=== PATIENT | male | born 1945 | race Caucasian/White ===

== ENCOUNTER 2019-08-24 06:18 | Inpatient (IN) | payer MEDICARE ==
[2019-08-18 13:47] VITALS: BP 168/94
[~2019-08-24] VITALS: Ht 167.6 cm; Wt 104.3 kg
[~2019-08-24 06:18] MED LIST: AMIO200T42 PO; APIX5TAB PO; ASPI81TA45 PO; ATOR40TA PO; B CO1TAB14 PO; CHOL40002 PO; DIAZ5TAB PO; EZET10TA70 PO; GABA300C PO; LEVO88TA2 PO; OXYC-302 PO; RAMI2.5C28 PO; SITA25TA PO
[2019-08-24] MEDS ORDERED: EPINEPHRINE 1 MG/ML, 1ML ONE (07:09)
[2019-08-24] MEDS ORDERED: THROMBIN (RECOMBINANT) 5,000 UNIT VIAL TP ONE (07:09)
[2019-08-24] MEDS ORDERED: BACITRACIN 50,000 UNIT ONE (07:09)
[2019-08-24] MEDS ORDERED: BUPIVACAINE/PF 0.5% ONE (07:09)
[2019-08-24] MEDS ORDERED: LACTATED RINGERS 1,000 ML IV SCH (07:32)
[2019-08-24] MEDS ORDERED: MIDAZOLAM 1 MG/ML, 2ML ONE (08:49)
[2019-08-24] MEDS ORDERED: FENTANYL PF 250 MCG/5ML ONE (08:49)
[2019-08-24] MEDS ORDERED: ROCURONIUM 10MG/ML,5ML ONE (08:50)
[2019-08-24] MEDS ORDERED: CEFAZOLIN 1,000 MG ONE (08:50)
[2019-08-24] MEDS ORDERED: ONDANSETRON 2MG/ML, 2ML ONE (08:50)
[2019-08-24] MEDS ORDERED: PROPOFOL 10 MG/ML, 20ML ONE (08:50)
[2019-08-24] MEDS ORDERED: WATER-INJECTION,STERILE 10 ML IV ONE (08:50)
[2019-08-24] MEDS ORDERED: DEXAMETHASONE 4 MG/ML, 1ML ONE (08:50)
[2019-08-24] MEDS ORDERED: LIDOCAINE-MPF 2% ,5ML ONE (08:50)
[2019-08-24] MEDS ORDERED: PHENYLEPHRINE 10 MG/ML ONE (09:48)
[2019-08-24] MEDS ORDERED: SUGAMMADEX 200 MG/2 ML IVPush ONE (09:48)
[2019-08-24] MEDS ORDERED: PROMETHAZINE 25 MG/ML, 1ML IV PRN (10:30)
[2019-08-24] MEDS ORDERED: ALBUTEROL/IPRATROPIUM 2.5MG/0.5MG, 3 ML NPPB PRN (10:30)
[2019-08-24] MEDS ORDERED: MEPERIDINE/PF 25MG/ML,1ML IVPush PRN (10:30)
[2019-08-24] MEDS ORDERED: METHOCARBAMOL 1,000 MG in DEXTROSE 5% 100 ML IV PRN (10:30)
[2019-08-24] MEDS ORDERED: hydrALAzine 20 MG/ML, 1ML IV PRN (10:30)
[2019-08-24] MEDS ORDERED: ACETAMINOPHEN 325 MG TABLET PO PRN ×2 (10:30→14:30)
[2019-08-24] MEDS ORDERED: FENTANYL PF 100 MCG/2ML IV PRN (10:30)
[2019-08-24] MEDS ORDERED: HYDROmorphone 2 MG/ML, 1ML IVPush PRN (10:30)
[2019-08-24] MEDS ORDERED: HALOPERIDOL 5 MG/ML IV PRN (10:30)
[2019-08-24] MEDS ORDERED: OXYcodone 5 MG/5 ML ORAL.SOL UDC PO PRN (10:30)
[2019-08-24] MEDS: INSULIN REGULAR 100 UNITS/ML, 3ML VIAL SQ-INSULIN SCH ×3 (11:00→20:39)
[2019-08-24] MEDS ORDERED: ONDANSETRON 2MG/ML, 2ML IV PRN (14:30)
[2019-08-24] MEDS ORDERED: CYCLOBENZAPRINE 10 MG TABLET PO PRN (14:30)
[2019-08-24] MEDS ORDERED: BISACODYL 10 MG SUPP PR PRN (14:30)
[2019-08-24] MEDS ORDERED: DIAZEPAM 5 MG TABLET PO PRN (14:30)
[2019-08-24] MEDS ORDERED: MAGNESIUM HYDROXIDE 8%, 30ML UDC PO PRN (14:30)
[2019-08-24] MEDS ORDERED: GABAPENTIN MC SCH (14:30)
[2019-08-24] MEDS ORDERED: ACETAMINOPHEN 650 MG SUPP PR PRN (14:30)
[2019-08-24] MEDS ORDERED: HYDROmorphone 2 MG/ML, 1ML IM PRN (14:30)
[2019-08-24] MEDS ORDERED: DIAZEPAM 5 MG/ML, 2ML IV PRN (14:30)
[2019-08-24] MEDS ORDERED: METHOCARBAMOL 750 MG TABLET PO PRN (14:30)
[2019-08-24] MEDS ORDERED: PROMETHAZINE 25 MG/ML, 1ML IM PRN (14:30)
[2019-08-24] MEDS ORDERED: LABETALOL 5MG/ML, 20ML IV PRN (14:30)
[2019-08-24] MEDS: NS + 20MEQ KCL 1,000 ML IV SCH (16:57)
[2019-08-24] MEDS: CEFAZOLIN PMX 1GM/50ML 50 ML IVPB SCH (16:57)
[2019-08-24 19:20] VITALS: BP 137/73
[2019-08-24] MEDS: ATORVASTATIN 40 MG TABLET PO SCH (20:39)
[2019-08-24] MEDS ORDERED: GABAPENTIN 300 MG CAPSULE PO PRN (21:30)
[2019-08-25 00:39] VITALS: BP 110/56
[2019-08-25] MEDS: CEFAZOLIN PMX 1GM/50ML 50 ML IVPB SCH (01:22)
[2019-08-25] MEDS: NS + 20MEQ KCL 1,000 ML IV SCH ×2 (05:20→17:55)
[2019-08-25 05:22] LABS: BASOPHILS # (AUTO) 0.11 x10^3/uL (0-0.1); BASOPHILS % (AUTO) 1 % (0-1); EOSINOPHILS % (AUTO) 1 % (1-7); LYMPHOCYTES % (AUTO) 8 % (22-44); MD NO; MEAN CORPUSCULAR HEMOGLOBIN 27.9 pg (27.5-34.5); MEAN CORPUSCULAR HGB CONC 31.8 g/dL (33.2-36.2); MEAN CORPUSCULAR VOLUME 87.8 fL (81-97); MEAN PLATELET VOLUME 8.2 fL (7.4-10.4); MONOCYTES # (AUTO) 0.71 x10^3/uL (0.2-0.8); MONOCYTES % (AUTO) 6 % (2-9); NEUTROPHILS # (AUTO) 10.12 x10^3/uL (1.8-6.8); NEUTROPHILS % (AUTO) 84 % (42-75); PLATELET COUNT 205 x10^3/uL (130-400); RED CELL DISTRIBUTION WIDTH 16.5 % (9.4-14.8)
[2019-08-25 05:33] LABS: ANION GAP 6 mmol/L (5-15); CALCIUM 8.3 mg/dL (8.5-10.1); CHLORIDE 106 mmol/L (98-107)
[2019-08-25 05:34] LABS: CREATININE 2.65 mg/dL (0.7-1.3)
[2019-08-25] MEDS: LEVOTHYROXINE 88 MCG TABLET PO SCH (06:35)
[2019-08-25 07:01] VITALS: BP 116/63
[2019-08-25] MEDS: INSULIN REGULAR 100 UNITS/ML, 3ML VIAL SQ-INSULIN SCH ×4 (08:55→21:05)
[2019-08-25] MEDS: SENNA/DOCUSATE TABLET PO SCH (08:56)
[2019-08-25] MEDS: EZETIMIBE 10 MG TABLET PO SCH (08:56)
[2019-08-25] MEDS: RAMIPRIL 2.5 MG CAPSULE PO SCH (08:56)
[2019-08-25] MEDS: LINAGLIPTIN 5 MG TAB PO SCH (08:56)
[2019-08-25] MEDS: AMIODARONE 200 MG TABLET PO SCH (08:56)
[2019-08-25] MEDS: OXYcodone/APAP 5/325MG TABLET PO PRN ×3 (12:29→20:47)
[2019-08-25 13:20] VITALS: BP 103/53
[2019-08-25 20:41] VITALS: BP 123/63
[2019-08-25] MEDS: ATORVASTATIN 40 MG TABLET PO SCH (20:47)
[2019-08-26 01:44] VITALS: BP 114/59
[2019-08-26] MEDS: LEVOTHYROXINE 88 MCG TABLET PO SCH (06:05)
[2019-08-26] MEDS: OXYcodone/APAP 5/325MG TABLET PO PRN (06:08)
[2019-08-26 07:20] VITALS: BP 147/73
[2019-08-26] MEDS: INSULIN REGULAR 100 UNITS/ML, 3ML VIAL SQ-INSULIN SCH (07:55)
[2019-08-26] MEDS: EZETIMIBE 10 MG TABLET PO SCH (07:55)
[2019-08-26] MEDS: SENNA/DOCUSATE TABLET PO SCH (07:56)
[2019-08-26] MEDS: AMIODARONE 200 MG TABLET PO SCH (07:56)
[2019-08-26] MEDS: LINAGLIPTIN 5 MG TAB PO SCH (07:56)
[2019-08-26] MEDS: RAMIPRIL 2.5 MG CAPSULE PO SCH (07:56)
[2019-08-26] MEDS: NS + 20MEQ KCL 1,000 ML IV SCH (07:56)
== END 2019-08-26 10:15 | disposition home health service (06) | DRG 520 ==
LOC: OUT 06:18 → 4NE 13:56 → OUT 13:59 → DCLOUNGE 08-26 10:07
PROVIDERS: ADMIT Neurological Surgery; ATTEND Neurological Surgery
PROC: 01NB0ZZ Release Lumbar Nerve, Open Approach (ICD-10-PCS; 2019-08-24)
PROC: 01NR0ZZ Release Sacral Nerve, Open Approach (ICD-10-PCS; 2019-08-24)
PROC: 00NY0ZZ Release Lumbar Spinal Cord, Open Approach (ICD-10-PCS; principal; 2019-08-24 09:30)
DX: M48.07 Spinal stenosis, lumbosacral region (principal); M54.17 Radiculopathy, lumbosacral region; M47.896 Other spondylosis, lumbar region; J44.9 Chronic obstructive pulmonary disease, unspecified; N18.3 Chronic kidney disease, stage 3 (moderate); E11.22 Type 2 diabetes mellitus with diabetic chronic kidney disease; E78.00 Pure hypercholesterolemia, unspecified; E11.40 Type 2 diabetes mellitus with diabetic neuropathy, unspecified; E07.9 Disorder of thyroid, unspecified; Z88.8 Allergy status to other drugs, medicaments and biological substances; Z88.5 Allergy status to narcotic agent; Z79.899 Other long term (current) drug therapy; Z87.891 Personal history of nicotine dependence; I25.2 Old myocardial infarction; Z86.73 Personal history of transient ischemic attack (TIA), and cerebral infarction without residual deficits
CPT/HCPCS: 36415; 72100; 72141; 80048; 82962; 85025; G0378; J0171; J0690; J1100; J1815; J2250; J2270; J2405; J2704; J3010; J3480; J2370

== ENCOUNTER 2020-03-12 07:42 | Outpatient (CLI) | payer MEDICARE ==
[2020-03-12 09:17] LABS: BASOPHILS # (AUTO) 0.05 x10^3/uL (0-0.1); BASOPHILS % (AUTO) 1 % (0-1); EOSINOPHILS # (AUTO) 0.17 x10^3/uL (0-0.4); EOSINOPHILS % (AUTO) 3 % (1-7); LYMPHOCYTES # (AUTO) 1.19 x10^3/uL (1-3.4); LYMPHOCYTES % (AUTO) 19 % (22-44); MD NO; MEAN CORPUSCULAR HEMOGLOBIN 34.2 pg (27.5-34.5); MEAN CORPUSCULAR HGB CONC 32.8 g/dL (33.2-36.2); MEAN CORPUSCULAR VOLUME 104.4 fL (81-97); MEAN PLATELET VOLUME 7.6 fL (7.4-10.4); MONOCYTES % (AUTO) 11 % (2-9); NEUTROPHILS # (AUTO) 4.13 x10^3/uL (1.8-6.8); NEUTROPHILS % (AUTO) 66 % (42-75); PLATELET COUNT 204 x10^3/uL (130-400); RED BLOOD COUNT 3.41 x10^6/uL (4.38-5.82); RED CELL DISTRIBUTION WIDTH 15.4 % (9.4-14.8)
[2020-03-12 09:27] LABS: ALANINE AMINOTRANSFERASE 23 U/L (12-78); ALBUMIN 3.5 g/dL (3.4-5.0); ANION GAP 7 mmol/L (5-15); CALCIUM 9.1 mg/dL (8.5-10.1); CHLORIDE 104 mmol/L (98-107)
[2020-03-12 09:30] LABS: ALKALINE PHOSPHATASE 62 U/L (45-117); BILIRUBIN,TOTAL 0.9 mg/dL (0.2-1.0); CREATININE 2.62 mg/dL (0.7-1.3); TOTAL PROTEIN 6.9 g/dL (6.4-8.2)
[2020-03-12 09:39] LABS: INTERNATIONAL NORMALIZED RATIO 1.07 (0.93-1.1); PROTHROMBIN TIME 11.4 Seconds (9.6-11.5)
[2020-03-12] MEDS ORDERED: HYDR-3343 PO (09:49)
[2020-03-12] MEDS ORDERED: PANT40TA3 PO (09:49)
[2020-03-12] MEDS ORDERED: APIX5TAB PO (09:49)
[2020-03-12] MEDS ORDERED: OXYC-307 PO (09:49)
[2020-03-12] MEDS ORDERED: TORS10TA4 PO (09:49)
== END 2020-03-12 23:59 | disposition home or self-care (01) ==
LOC: STAR 07:42
PROVIDERS: ATTEND Neurological Surgery
DX: Z01.818 Encounter for other preprocedural examination (principal); Z11.59 Encounter for screening for other viral diseases; M48.02 Spinal stenosis, cervical region
CPT/HCPCS: 36415; 71046; 80053; 83036; 85025; 85610; 85730; 93005; U0001

== ENCOUNTER 2020-03-15 05:35 | Observation (INO) | payer MEDICARE ==
[~2020-03-15] VITALS: Ht 167.6 cm; Wt 96.5 kg
[~2020-03-15 05:35] MED LIST changes: +HYDR-3343 PO; +OXYC-307 PO; +PANT40TA3 PO; +TORS10TA4 PO
[2020-03-15] MEDS ORDERED: CHLORHEXIDINE 15 ML UDC MM ONE (06:30)
[2020-03-15] MEDS ORDERED: BACITRACIN 50,000 UNIT ONE (06:47)
[2020-03-15] MEDS ORDERED: BUPIVACAINE/PF-EPI 0.5% 1:200K ONE (06:47)
[2020-03-15] MEDS ORDERED: MIDAZOLAM 1 MG/ML, 2ML ONE (06:56)
[2020-03-15] MEDS ORDERED: FENTANYL PF 250 MCG/5ML ONE (06:56)
[2020-03-15] MEDS ORDERED: LIDOCAINE-MPF 1%, 2ML ONE (06:59)
[2020-03-15] MEDS: LACTATED RINGERS 1,000 ML IV SCH ×2 (07:18→13:30)
[2020-03-15] MEDS ORDERED: ACETAMINOPHEN 500 MG TABLET PO ONE (07:30)
[2020-03-15] MEDS ORDERED: OXYcodone IR 5MG TABLET PO ONE (07:30)
[2020-03-15] MEDS ORDERED: CEFAZOLIN 1,000 MG ONE (07:43)
[2020-03-15] MEDS ORDERED: PROPOFOL 10 MG/ML, 20ML ONE (07:43)
[2020-03-15] MEDS ORDERED: NEOSTIGMINE 1 MG/ML, 10ML ONE (07:43)
[2020-03-15] MEDS ORDERED: ROCURONIUM 10 MG/ML,10ML ONE (07:43)
[2020-03-15] MEDS ORDERED: SUCCINYLCHOLINE 20 MG/ML, 10ML ONE (07:43)
[2020-03-15] MEDS ORDERED: DEXAMETHASONE 4 MG/ML, 1ML ONE (07:43)
[2020-03-15] MEDS ORDERED: ONDANSETRON 2MG/ML, 2ML ONE (07:43)
[2020-03-15] MEDS ORDERED: GLYCOPYRROLATE 0.2MG/1ML, 5ML ONE (07:43)
[2020-03-15 07:48] LABS: INTERNATIONAL NORMALIZED RATIO 1.01 (0.93-1.1); PROTHROMBIN TIME 10.7 Seconds (9.6-11.5)
[2020-03-15] MEDS ORDERED: ONDANSETRON 2MG/ML, 2ML IVPush PRN (08:30)
[2020-03-15] MEDS ORDERED: OXYcodone 5 MG/5 ML ORAL.SOL UDC PO PRN (08:30)
[2020-03-15] MEDS ORDERED: HYDROmorphone 1 MG/ML, 1ML INJ IVPush PRN (08:30)
[2020-03-15] MEDS ORDERED: LABETALOL 5MG/ML, 20ML IV PRN ×2 (08:30→14:00)
[2020-03-15] MEDS ORDERED: hydrALAzine 20 MG/ML, 1ML IV PRN (08:30)
[2020-03-15] MEDS ORDERED: FENTANYL PF 100 MCG/2ML ONE (10:42)
[2020-03-15] MEDS: FENTANYL PF 100 MCG/2ML IV PRN ×2 (11:10→11:25)
[2020-03-15] MEDS ORDERED: OXYcodone 5 MG/5 ML ORAL.SOL UDC ONE (11:35)
[2020-03-15 12:35] LABS: ALBUMIN 3.4 g/dL (3.4-5.0); ANION GAP 7 mmol/L (5-15); CALCIUM 8.6 mg/dL (8.5-10.1); CHLORIDE 103 mmol/L (98-107); CREATININE 2.48 mg/dL (0.7-1.3)
[2020-03-15 14:00] VITALS: BP 155/80
[2020-03-15] MEDS ORDERED: ONDANSETRON 2MG/ML, 2ML IV PRN (14:00)
[2020-03-15] MEDS ORDERED: PROMETHAZINE 25 MG SUPP PR PRN (14:00)
[2020-03-15] MEDS ORDERED: MAGNESIUM HYDROXIDE 8%, 30ML UDC PO PRN (14:00)
[2020-03-15] MEDS ORDERED: CYCLOBENZAPRINE 10 MG TABLET PO PRN (14:00)
[2020-03-15] MEDS ORDERED: HYDROmorphone 2 MG/ML, 1ML IM PRN (14:00)
[2020-03-15] MEDS ORDERED: DIPHENHYDRAMINE 50 MG/ML, 1ML IVPush PRN (14:00)
[2020-03-15] MEDS: NS + 20MEQ KCL 1,000 ML IV SCH (14:54)
[2020-03-15] MEDS: CEFAZOLIN PMX 1GM/50ML 50 ML IVPB SCH ×2 (15:05→23:26)
[2020-03-15 15:25] VITALS: BP 173/81
[2020-03-15 15:55] VITALS: BP 159/79
[2020-03-15] MEDS: INSULIN REGULAR 100 UNITS/ML, 3ML VIAL SQ-INSULIN SCH ×2 (17:33→21:08)
[2020-03-15 19:43] VITALS: BP 157/73
[2020-03-15] MEDS: ATORVASTATIN 40 MG TABLET PO SCH (21:07)
[2020-03-16 00:46] VITALS: BP 116/64
[2020-03-16 03:22] VITALS: BP 103/61
[2020-03-16 05:23] LABS: BASOPHILS % (AUTO) 0 % (0-1); EOSINOPHILS # (AUTO) 0.03 x10^3/uL (0-0.4); EOSINOPHILS % (AUTO) 0 % (1-7); LYMPHOCYTES # (AUTO) 1.03 x10^3/uL (1-3.4); LYMPHOCYTES % (AUTO) 9 % (22-44); MD NO; MEAN CORPUSCULAR HEMOGLOBIN 34.1 pg (27.5-34.5); MEAN CORPUSCULAR HGB CONC 33.1 g/dL (33.2-36.2); MEAN CORPUSCULAR VOLUME 103.1 fL (81-97); MEAN PLATELET VOLUME 8.1 fL (7.4-10.4); MONOCYTES # (AUTO) 1.17 x10^3/uL (0.2-0.8); MONOCYTES % (AUTO) 10 % (2-9); NEUTROPHILS # (AUTO) 9.58 x10^3/uL (1.8-6.8); NEUTROPHILS % (AUTO) 81 % (42-75); PLATELET COUNT 221 x10^3/uL (130-400); RED BLOOD COUNT 3.33 x10^6/uL (4.38-5.82); RED CELL DISTRIBUTION WIDTH 15.1 % (9.4-14.8)
[2020-03-16 05:34] LABS: ALBUMIN 3.3 g/dL (3.4-5.0); ANION GAP 7 mmol/L (5-15); CALCIUM 8.3 mg/dL (8.5-10.1); CHLORIDE 104 mmol/L (98-107); CREATININE 2.11 mg/dL (0.7-1.3)
[2020-03-16] MEDS: PANTOPRAZOLE 40MG TABLET PO SCH (06:17)
[2020-03-16] MEDS: LEVOTHYROXINE 88 MCG TABLET PO SCH (06:17)
[2020-03-16] MEDS: INSULIN REGULAR 100 UNITS/ML, 3ML VIAL SQ-INSULIN SCH ×3 (06:19→16:00)
[2020-03-16 07:05] VITALS: BP 132/70
[2020-03-16] MEDS: AMIODARONE 200 MG TABLET PO SCH (08:40)
[2020-03-16] MEDS: SENNA/DOCUSATE TABLET PO SCH (08:40)
[2020-03-16] MEDS: EZETIMIBE 10 MG TABLET PO SCH (08:40)
[2020-03-16] MEDS: LINAGLIPTIN 5 MG TAB PO SCH (08:41)
[2020-03-16] MEDS: OXYcodone IR 5MG TABLET PO PRN ×3 (08:45→23:55)
[2020-03-16] MEDS ORDERED: TORSEMIDE 20 MG TABLET PO SCH (09:00)
[2020-03-16] MEDS: NS + 20MEQ KCL 1,000 ML IV SCH (09:59)
[2020-03-16 12:54] VITALS: BP 149/75
[2020-03-16 18:34] VITALS: BP 116/67
[2020-03-16] MEDS: ATORVASTATIN 40 MG TABLET PO SCH (23:54)
[2020-03-17] MEDS: INSULIN REGULAR 100 UNITS/ML, 3ML VIAL SQ-INSULIN SCH ×3 (00:36→11:00)
[2020-03-17 00:55] VITALS: BP 129/70
[2020-03-17 03:16] LABS: ANION GAP 5 mmol/L (5-15); CALCIUM 8.5 mg/dL (8.5-10.1); CHLORIDE 100 mmol/L (98-107)
[2020-03-17 03:17] LABS: CREATININE 2.36 mg/dL (0.7-1.3)
[2020-03-17] MEDS: LEVOTHYROXINE 88 MCG TABLET PO SCH (06:49)
[2020-03-17] MEDS: PANTOPRAZOLE 40MG TABLET PO SCH (06:49)
[2020-03-17 07:45] VITALS: BP 145/66
[2020-03-17] MEDS: EZETIMIBE 10 MG TABLET PO SCH (08:18)
[2020-03-17] MEDS: LINAGLIPTIN 5 MG TAB PO SCH (08:18)
[2020-03-17] MEDS: SENNA/DOCUSATE TABLET PO SCH (08:18)
[2020-03-17] MEDS: OXYcodone IR 5MG TABLET PO PRN ×2 (08:18→11:18)
[2020-03-17] MEDS: AMIODARONE 200 MG TABLET PO SCH (08:19)
[2020-03-17] MEDS ORDERED: BETHANECHOL 10 MG TABLET PO SCH (09:00)
[2020-03-17] MEDS ORDERED: BETH25TA16 PO (10:39)
== END 2020-03-17 11:45 | disposition home or self-care (01) ==
LOC: OUT 05:35 → 4NE 12:40 → OUT 19:59 → 4NE 19:59 → DCLOUNGE 03-17 11:38
PROVIDERS: ADMIT Neurological Surgery; ATTEND Neurological Surgery
DX: M48.02 Spinal stenosis, cervical region (principal); M54.12 Radiculopathy, cervical region; I13.0 Hypertensive heart and chronic kidney disease with heart failure and stage 1 through stage 4 chronic kidney disease, or unspecified chronic kidney disease; N18.9 Chronic kidney disease, unspecified; I48.91 Unspecified atrial fibrillation; E11.22 Type 2 diabetes mellitus with diabetic chronic kidney disease; E03.9 Hypothyroidism, unspecified; I25.2 Old myocardial infarction; E78.5 Hyperlipidemia, unspecified; J43.9 Emphysema, unspecified; E11.40 Type 2 diabetes mellitus with diabetic neuropathy, unspecified; E78.00 Pure hypercholesterolemia, unspecified; Z86.73 Personal history of transient ischemic attack (TIA), and cerebral infarction without residual deficits; Z79.01 Long term (current) use of anticoagulants; Z68.33 Body mass index [BMI] 33.0-33.9, adult; Z79.899 Other long term (current) drug therapy
CPT/HCPCS: 20936; 22551; 22552; 22853; 36415; 72040; 80048; 82040; 82962; 85025; 85610; 85730; 86850; 86900; 87635; 96365; 96366; 96375; 97161; C1713; C1776; G0378; J0330; J0690; J1100; J1815; J2250; J2270; J2405; J2704; J2710; J3010; J3480; J7120